=== PATIENT | male | born 1980 | race African-American/Black ===

== ENCOUNTER 2022-04-17 07:43 | Outpatient (CLI) | payer OTHER | END 2022-04-17 07:44 | disposition home or self-care (01) | LOC: ULT 07:43 | PROVIDERS: ATTEND Family Medicine | DX: R10.0 Acute abdomen (principal); R94.5 Abnormal results of liver function studies; K76.0 Fatty (change of) liver, not elsewhere classified | CPT/HCPCS: 76700 ==